=== PATIENT | female | born 2000 | race Caucasian/White ===

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

== ENCOUNTER 2023-01-22 00:17 | Emergency (ER) | payer BC, OTHER ==
[~2023-01-22] VITALS: Ht 162.6 cm; Wt 63.5 kg
[~2023-01-22 00:17] MED LIST changes: +CEPH500 PO
[2023-01-22] MEDS ORDERED: Bactrim Ds Tab1 EACH PO (01:12)
[2023-01-22] MEDS ORDERED: NARCAN4 M1 (01:12)
== END 2023-01-22 01:40 | disposition home or self-care (01) ==
LOC: ER 00:17
DX: L03.114 Cellulitis of left upper limb (principal); L03.113 Cellulitis of right upper limb; F11.90 Opioid use, unspecified, uncomplicated; Z59.00 Homelessness unspecified
CPT/HCPCS: 90471; 90714; 96372; 99283; A9270; J0696

== ENCOUNTER 2023-05-12 03:09 | Emergency (ER) | payer BC, OTHER ==
[~2023-05-12] VITALS: Ht 162.6 cm; Wt 72.6 kg
[~2023-05-12 03:09] MED LIST changes: +Bactrim Ds Tab1 EACH PO; +NARCAN4 M1
[2023-05-12 06:02] VITALS: BP 98/58
== END 2023-05-12 06:25 | disposition home or self-care (01) ==
LOC: ER 03:09
DX: F10.129 Alcohol abuse with intoxication, unspecified (principal)
CPT/HCPCS: 99284; A9270

== ENCOUNTER 2023-09-01 15:56 | Emergency (ER) | payer BC, OTHER ==
[~2023-09-01] VITALS: Ht 160 cm; Wt 63.5 kg
[2023-09-01 16:00] VITALS: BP 133/87
[2023-09-01] MEDS ORDERED: SUBOXONE 8 MG-1 EACH SL (17:13)
== END 2023-09-01 17:19 | disposition home or self-care (01) ==
LOC: ER 15:56
DX: F11.21 Opioid dependence, in remission (principal)
CPT/HCPCS: 99283; A9270